=== PATIENT | male | born 1975 | race Asian ===

== ENCOUNTER 2024-05-22 17:53 | Emergency (ER) | payer MEDICAID ==
[~2024-05-22] VITALS: Ht 177.8 cm; Wt 181.0 kg
[2024-05-22] MEDS: PREDNISONE 20MG TABLET PO ONE (18:15)
[2024-05-22] MEDS: IPRATROPIUM/ALBUTEROL 0.5-3(2.5)MG/3ML NEB HHN ONE (18:15)
[2024-05-22 19:11] LABS: BASOPHILS % 0.7 % (0.0-2.0); CHLORIDE 104 mEq/L (98-107); EOSINOPHILS % 2.3 % (0.0-5.0); HEMATOCRIT. 42.4 % (42.0-52.0); HEMOGLOBIN. 14.1 g/dL (14.0-18.0); LYMPHOCYTES % 27.3 % (20.0-50.0); MEAN CORPUSCULAR HEMOGLOBIN 31.7 pg (28.0-32.0); MEAN CORPUSCULAR HGB CONC 33.3 g/dL (31.0-37.0); MEAN CORPUSCULAR VOLUME 95.4 fL (80.0-94.0); MEAN PLATELET VOLUME 7.8 fl (7.4-10.4); MONOCYTES % 8.6 % (2.0-8.0); NEUTROPHILS % 61.1 % (40.0-76.0); PLATELET 298 x1000/uL (130-400); POTASSIUM 3.9 mEq/L (3.5-5.1); RED BLOOD CELL COUNT 4.44 mill/uL (4.7-6.1); RED CELL DISTRIBUTION WIDTH 13.6 % (11.6-14.6); SODIUM 139 mEq/L (136-145); WHITE BLOOD COUNT 11.5 x1000/uL (4.5-11.0)
[2024-05-22 19:12] LABS: CALCIUM 9.4 mg/dL (8.7-10.4); CARBON DIOXIDE 24 mEq/L (21-32)
[2024-05-22] MEDS: ONDANSETRON 4MG ODT PO ONE (19:15)
[2024-05-22 19:17] LABS: CREATININE 1.1 mg/dL (0.6-1.3); GLUCOSE 117 mg/dL (70-105); UREA NITROGEN BLOOD 12 mg/dL (9-23)
[2024-05-22 19:40] LABS: PROTHROMBIN TIME 10.8 sec (9.6-11.0)
[2024-05-22 19:41] LABS: TROPONIN I HIGH SENSITIVITY < 4 ng/L (3.0-53)
[2024-05-22] MEDS ORDERED: GUAI-450 MT (19:51)
[2024-05-22] MEDS ORDERED: P50 MT (19:51)
[2024-05-22] MEDS ORDERED: ALBU18HF2 IH (19:51)
[2024-05-22] MEDS: ONDANSETRON 4MG ODT PO NR (20:26)
[2024-05-22] MEDS: PREDNISONE 20MG TABLET PO NR (20:26)
[2024-05-22] MEDS: IPRATROPIUM/ALBUTEROL 0.5-3(2.5)MG/3ML NEB HHN NR (21:01)
[2024-05-22 21:02] VITALS: PULSE 74; RESP 20; O2SAT 97
[2024-05-22 21:42] VITALS: BP 188/109; PULSE 90; RESP 18; TEMP 36.7; O2SAT 95
== END 2024-05-22 21:53 | disposition home or self-care (01) ==
LOC: ER 17:53
DX: J20.8 Acute bronchitis due to other specified organisms (principal); I11.0 Hypertensive heart disease with heart failure; I50.9 Heart failure, unspecified; J45.909 Unspecified asthma, uncomplicated; Z20.822 Contact with and (suspected) exposure to COVID-19
CPT/HCPCS: 80048; 83880; 85025; 85610; 84484; 87804 ×2; 36415; 71045; 94640; 99284; 87426; Q0162; J7512; Z7610 ×3

== ENCOUNTER 2024-05-23 02:04 | Emergency (ER) | payer MEDICAID ==
[~2024-05-23] VITALS: Ht 185.4 cm; Wt 157.0 kg
[~2024-05-23 02:04] MED LIST: ALBU18HF2 IH; GUAI-450 MT; P50 MT
[2024-05-23 02:31] VITALS: O2SAT 100
[2024-05-23 12:30] VITALS: BP 124/70; PULSE 88; RESP 17; TEMP 36.7; O2SAT 100
== END 2024-05-23 13:20 | disposition home or self-care (01) ==
LOC: ER 02:04
DX: R06.02 Shortness of breath (principal); Z59.00 Homelessness unspecified
CPT/HCPCS: 99281

== ENCOUNTER 2024-05-23 19:35 | Emergency (ER) | payer MEDICAID ==
[~2024-05-23] VITALS: Ht 177.8 cm; Wt 140.0 kg
[2024-05-23 19:37] VITALS: BP 161/93; PULSE 82; RESP 16; TEMP 36.7; O2SAT 97
[2024-05-23] MEDS ORDERED: TETANUS, DIPHTHERIA, PERTUSSIS VAC/PF 0.5ML (>10YR OLD) IM ONE (20:30)
== END 2024-05-24 02:27 | disposition left against medical advice (07) ==
LOC: ER 19:35
DX: S40.812A Abrasion of left upper arm, initial encounter (principal); I10 Essential (primary) hypertension; G47.30 Sleep apnea, unspecified; M79.602 Pain in left arm; Y00.XXXA Assault by blunt object, initial encounter; Y93.89 Activity, other specified; Y92.89 Other specified places as the place of occurrence of the external cause; Y99.8 Other external cause status
CPT/HCPCS: 73060; 73090; 99284